=== PATIENT | female | born 1980 | race Caucasian/White ===

== ENCOUNTER 2023-07-18 10:50 | Outpatient (OUT) | payer OTHER, SELFPAY ==
--- NOTE | 2023-07-18 11:41 | XR_ITS ---
The [address] [address] Patient Name: ROMAN TURPIN MRN: [id number] date: 1980 Sex: F Assigned Patient Location: LAB Current Patient Location: LAB Accession/Order Number: [id number] Exam Date: 07/18/2023 11:45 Report Date: 07/18/2023 13:59 At the request of: JUAN DIEGO NASH Procedure: XR chest 2V EXAMINATION: XR chest 2V HISTORY: Cough COMPARISON: XR chest 03/25/2020 FINDINGS: LUNGS: No significant pulmonary parenchymal abnormalities. VASCULATURE: No increased pulmonary vasculature. PLEURA: No pneumothorax, effusion, or pleural thickening. CARDIAC: No cardiomegaly or cardiac silhouette abnormality. MEDIASTINUM: No visible mass or adenopathy. BONES: No fracture or visible bone lesion. OTHER: Negative. XR/XR chest 2V IMPRESSION: 1. No acute cardiopulmonary process. Electronically authenticated by: EJ TRAORE Date: 07/18/2023 13:59
[2023-07-18 12:16] LABS: Percent Iron Saturation 6.8 %
[2023-07-18 12:18] LABS: Estimated Average Glucose 111 mg/dL; Glycohemoglobin A1C 5.5 % (4.5-6.2)
[2023-07-18 12:51] LABS: Chol HDL Ratio 3.2; Cholesterol 224 mg/dL (<=200); HDL Cholesterol 70 mg/dL (40-60); Triglycerides 62 mg/dL (<=150); VLDL CHOLESTEROL 12.4 mg/dL
== END 2023-07-18 10:51 | disposition home or self-care (01) ==
PROVIDERS: PCP Family Medicine Adult Medicine; Visit Provider Family Medicine Adult Medicine
DX: D64.9 Anemia, unspecified (principal); Z13.1 Encounter for screening for diabetes mellitus; Z13.220 Encounter for screening for lipoid disorders; R53.83 Other fatigue; R05.9 Cough, unspecified
CPT/HCPCS: 36415; 71046; 80061; 82607; 82746; 83036; 83540; 83550; 84443

== ENCOUNTER 2023-08-16 13:45 | Emergency (ER) | payer OTHER, SELFPAY ==
[2023-08-16 13:48] VITALS: BP 140/94; PULSE 74; TEMP 36.4; O2SAT 97; BMI 31.6
--- OUTSIDE RECORDS SUMMARY | 2023-08-16 13:49 | XMS_ITS | CCD ---
[facility] Organization [facility] Providers Care Grinder Set Up Operator Surface Name Role Phone [facility] Unavailable Tony Mahan Primary Care Physician Unavail able Tony Mahan Attending Unavailable Tony Mahan Attending Unavailable Karina Beavers Attending Unavailable Tony Mahan Referring Unavailable Tony Mahan Admitting Unavailable Tony Mahan Attending Unavailable Allergies Allergy Classification Reported Allergen(s) Allergy Type Date of Onset Reaction(s) Facility (8 sources) Codeine; Translations: [codeine] Drug Allergy Anaphylaxis (disorder) [facility] Medicine [place] Medications Current Medications Medication Drug Class(es) Dates Sig (Normalized) Sig (Original) [id number] 200 actuat albuterol 0.09 mg/actuat metered dose inhaler (10 sources) beta2-Adrenergic Agonist Start: 11-15-2019 take 1 puff(s) by inhalation every four hours as needed Ventolin HFA 108 (90 Base) MCG/ACT 1 puff as needed Inhalation every 4 hrs Oct, Active Start: 11-15-2019 take 1 puff(s) by in halation every four hours as needed Albuterol Sulfate HFA 108 (90 Base) MCG/ACT 1 puff as needed Inhalation every 4 hrs Active Albuterol (Eqv-ProAir HFA) 90 mcg/inh inhalation aerosol (2 sources) Start: 07-18-2023 take 2 puff(s) by inhalation every six hours Albuterol (Eqv-ProAir HFA) 90 mcg/inh inhalation aerosol 2 puff(s), Inhalation, q6hr, 8.5 gm, Refill(s) 1, [facility], 167, cm, 07/18/23 9:13:00 EDT, Height/Length Dosing, 99.1, kg, 07/18/23 9:13:00 EDT, Weight Dosing Start Date: 07/18/23 Status: Ordered azithromycin 250 mg oral tablet (11 sources) Macrolide Antimicrobial Start: 10-12-2021 Zithromax Z-Jorden 250 MG as directed Orally Sep, Active Start: 11-15-2019 Azithromycin 2 50 MG 2 tablet on the first day, then 1 tablet daily for 4 days Orally as directed for 5 day(s) Dec, Active Start: 11-15-2019 120 actuat budesonide 0.16 mg/actuat / formoterol fumarate 0.0045 mg/actuat metered dose inhaler (5 sources) Corticosteroid, beta2-Adrenergic Agonist Start: 05-03-2019 take 2 puff(s) by inhalation twice daily Symbicort 160-4.5 MCG/ACT 2 puffs Inhalation Twice a day Apr, Active Start: 05-03-2019 Budesonide 90 MCG/ACT (3 sources) Start: 01-04-2021 take 1 puff(s) by inhalation once daily Budesonide 90 MCG/ACT 1 puff Inhalation Once a day Dec, Active Start: 01-04-2021 dexamethasone 2 mg oral tablet (3 sources) Corticosteroid Start: 01-04-2021 Dexamethasone 2 MG 1 tablet Orally TID x's 3 days, then BID x's 3 days, then daily x's 3 days Dec, Active escitalopram 10 mg oral tablet (5 sources) Serotonin Reuptake Inhibitor Start: 04-16-2019 take 1 tablet by mouth every twenty-four hours Escitalopram Oxalate 10 MG 1 tablet Orally Once a day for 30 day(s) Mar, Active guanFACINE 1 mg oral tablet (2 sources) Central alpha-2 Adrenergic Agonist Start: 07-18-2023 take 1 tablet by mouth once daily at bedtime guanFACINE 1 mg Tab 1 mg = 1 tab(s), Oral, Once a day (at bedtime), # 30 tab(s), Refills(s) 5, Pharmacy: [facility], 167, cm, 07/18/23 9:13:00 EDT, Height/Length Dosing, 99.1, kg, 07/18/23 9:13:00 EDT, Weight Dosing Start Date: 07/18/23 Status: Ordered montelukast 10 mg oral tablet (2 sources) Leukotriene Receptor Antagonist Start: 07-18-2023 take 1 tablet by mouth once daily in the evening Singulair 10 mg Tab 10 mg = 1 tab(s), Oral, qPM, # 30 tab(s), Refills(s) 5, Pharmacy: [facility], 167, cm, 07/18/23 9:13:00 EDT, Height/Length Dosing, 99.1, kg, 07/18/23 9:13:00 EDT, Weight Dosing Start Date: 07/18/23 Status: Ordered ondansetron 4 mg oral tablet (5 sources) Serotonin-3 Receptor Antagonist Start: 05-03-2019 take 1 tablet by mouth every six hours as needed Zofran 4 MG 1 tablet Orally Q 6 hrs prn for 30 day(s) Apr, Active predniSONE 20 mg oral tablet (4 sources) Start: 07-18-2023 End: 07-23-2023 take 2 tablets by mouth once daily predniSONE 20 mg Tab 40 mg = 2 tab(s), Oral, Daily, X 5 day(s), # 10 tab(s), Refills(s) 0, Pharmacy: [facility], 167, cm, 07/18/23 9:13:00 EDT, Height/Length Dosing, 99.1, kg, 07/18/23 9:13:00 EDT, Weight Dosing Start Date: 07/18/23 Stop Date: 07/23/23 Status: Ordered Start: 10-12-2021 predniSONE 20 MG 1 tablet TID for 3 days and then 1 tablet BID for 3 day and then 1 tablet daily for 3 days and then stop Orally as directed for 9 days Sep, Active Start: 02-14-2021 predniSONE 20 MG 1 tablet Orally BID for 5 days, QD for 5 days Jan, Active Completed/Discontinued Medications Medication Drug Class(es) Dates Sig (Normalized) Sig (Original) Ketorolac (1 source) Nonsteroidal Anti-inflammatory Drug, Cyclooxygenase Inhibitor Start: 07-18-2015 Toradol per 15 mg June, 2 mg Triamcinolone (1 source) Corticosteroid Start: 11-03-2015 KENALOG - 10 mg Oct, 80 mg Problems Active Problems Problem Classification Problem Date Documented Date Episodic/Chronic Administrative/social admission (1 source) Patient encounter status; Translations: [Persons encountering health services in other specified circumstances] Onset: 07-17-2023 Episodic Anxiety disorders (1 source) Anxiety disorder; Translations: [Anxiety disorder, unspecified] Onset: 07-18-2023 Chronic Asthma (8 sources) Asthma; Translations: [Unspecified asthma, uncomplicated] Onset: 07-18-2023 Chronic Attention-deficit, conduct, and disruptive behavior disorders (3 sources) Attention deficit hyperactivity disorder; Translations: [Attention-deficit hyperactivity disorder, unspecified type] Onset: 07-18-2023 Chronic Deficiency and other anemia (3 sources) Anemia; Translations: [Anemia, unspecified] Onset: 07-18-2023 Episodic Disorders of lipid metabolism (5 sources) Hyperlipidemia; Translations: [Hyperlipidemia, unspecified] Chronic Malaise and fatigue (3 sources) Fatigue; Translations: [Other fatigue] Onset: 07-18-2023 Episodic Mood disorders (9 sources) Depressive disorder; Translations: [Major depressive disorder, single episode, unspecified] Onset: 07-18-2023 Chronic Nausea and vomiting (5 sources) Diarrhea and vomiting; Translations: [Vomiting, unspecified] Episodic Nutritional deficiencies (5 sources) Vitamin D deficiency; Translations: [Vitamin D deficiency, unspecified] Chronic Other lower respiratory disease (3 sources) Cough; Translations: [Cough, unspecified] Onset: 07-18-2023 Episodic Other nervous system disorders (5 sources) Skin sensation disturbance; Translations: [Anesthesia of skin] Episodic Other nutritional; endocrine; and metabolic disorders (5 sources) Body mass index 40+ - severely obese; Translations: [Body mass index (BMI) 40.0-44.9, adult] Chronic Other nutritional; endocrine; and metabolic disorders (1 source) Obese class II; Translations: [Body mass index (BMI) 35.0-35.9, adult] Onset: 07-18-2023 Chronic Other nutritional; endocrine; and metabolic disorders (1 source) Abnormal weight loss; Translations: [Abnormal weight loss] Onset: 07-18-2023 Episodic Other nutritional; endocrine; and metabolic disorders (2 sources) Weight loss 07-18-2023 Episodic Other screening for suspected conditions (not mental disorders or infectious disease) (2 sources) Imaging result abnormal; Translations: [Abnormal findings on diagnostic imaging of other specified body structures] Onset: 07-30-2023 Chronic Other screening for suspected conditions (not mental disorders or infectious disease) (4 sources) Procedure carried out on subject; Translations: [Encounter for screening for lipoid disorders] Onset: 07-18-2023 Episodic Residual codes; unclassified (5 sources) Tobacco user; Translations: [Tobacco use] Episodic Residual codes; unclassified (3 sources) Insomnia; Translations: [Insomnia, unspecified] Onset: 07-18-2023 Episodic Unclassified (10 sources) Patient encounter status 07-17-2023 Past or Other Problems Problem Classification Problem Date Documented Da te Episodic/Chronic Other upper respiratory disease (1 source) Nasal congestion Onset: 02-14-2021 Resolved: 02-14-2021 Episodic Unclassified (1 source) Exposure to COVID-19 virus Z20.822; Translations: [Exposure to COVID-19 virus Z20.822] Onset: 12-18-2020 Resolved: 12-18-2020 Unclassified (1 source) Cough R05.9 Onset: 02-14-2021 Resolved: 02-14-2021 Results Test Name Value Interpretation Reference Range Facility Pulmonary Function Studieson 08-07-2023 Pulmonary Function Studies PULMONARY FUNCTION TEST: 07/30/2023 REFERRING PHYSICIAN: Tony Mahan D.O. REASON FOR TESTING: This is a 43-year-old female former smoker one pack a day for 22 years and work exposure to mold. Pulmonary function test is performed to evaluate for asthma. Spirometry shows reduced FEV1 at 58% predicted. Forced vital capacity is reduced at 75% predicted. FEV1/forced vital capacity ratio is reduced at 63%. After administration of bronchodilator there is significant improvement in FEV1 by 40% and forced vital capacity by 24%. Lung volume testing shows normal total lung capacity at 105% predicted. Residual volume is increased at 195% predicted. RV/total lung capacity ratio is increased at 59%. The lung diffusion capacity is normal at 93% predicted. IMPRESSION: There is moderate to severe obstructive lung disease. There is significant improvement post bronchodilator therapy with normalization suggestive of asthma. The lung volume testing shows air trapping. The lung diffusion capacity is normal. READ BY: Linnea Carolina M.D. ca Dictated: 08/04/2023 [id number] Transcribed: 08/04/2023 cc:Tony Mahan D.O. [facility] Comment on above: Result Comment: Elec tronically Signed By: Ge SMITH, iLnnea X\.br\Date and Time Signed: 08/07/23 13:23 EDT Consent for Treatmenton Consent for Treatment [id number] .00TIFF Normal [facility] Pulmonary Function Testson 0 07-30-2023 Pulmonary Function Tests [id number] #1.00TIFF Normal [facility] XR Chest 2 Viewson XR Chest 2 Views Exam Date/Time: 07/30/2023 10:33 EDT Reason for Exam: R05.9;Cough Report IMPRESSION: SMALL FOCAL DENSITY VISUALIZED ANTERIORLY ON ONLY THE LATERAL VIEW. FOLLOW-UP PA AND LATERAL CHEST EXAM IS A SUGGESTION, AND IF THIS IS PERSISTENT, THEN CT CHEST COULD BE CONSIDERED FOR FURTHER EVALUATION. CLINICAL HISTORY: Cough, R05.9. COMMENT: The heart is normal in size. The mediastinum is unremarkable. On the lateral view, there is a small density projecting posterior to the sternum, but without corresponding finding evident on the PA image, suggesting that this is medial in location. The etiology and significance of this is unclear. Perhaps this is due to atelectasis or small area of confluent infiltration. The lungs are otherwise unremarkable. No pleural effusion is evident. Of incidental note, there is mild thoracic dextroscoliosis. Ordering Provider: Tony Mahan FINAL REPORT Dictated: 07/30/2023 11:12 am Khari Cristina M.D. Signed (Electronic Signature): 07/30/2023 11:12 am Signed by: Khari Cristina M.D. Transcribed by: GUIDO Technologist: DPR Technical Comments Radiation Dose: Ka,r in mGy = na DAP = na Normal [facility] Physician Referralon 024 Physician Referral [id number]# 1.00TIFF Normal [facility] Ambulatory Visit Summaryon 0 07-18-2023 Ambulatory Visit Summary YOLANDA NO :1980 Visit Date:07/18/2023 Ambulatory Visit Instructions Your Diagnosis Establishing care with new doctor, encounter for ADHD Pap smear for cervical cancer screening Weight loss Fatigue Screening mammogram for breast cancer Anemia Recurrent mild major depressive disorder with anxiety Screening for hyperlipidemia Screening for diabetes mellitus Insomnia Asthma Cough Adult BMI 35.0-35.9 kg/sq m Anxiety disorder, unspecified Bipolar disorder Your Care Team Attending Physician - Tony Mhaan DO Primary Care Physician - BETTIE GORDON MD This Is Your Medications List guanfacine (guanFACINE 1 mg Tab) montelukast (Singulair 10 mg Tab) Discharge Vitals Heart Rate (Peripheral) 81 Blood Pressure 128/100 Height 167 cm Height 66 in Weight 99.1 kg Weight 218.02 lb BMI 35.53 What to do next You Need to Schedule the Following Appointments Follow Up with Tony Mahan DO, JUN, PED When: Within 3 months Comments: 20 min slot To go instructions: Get your labs drawn today - we will call with the results Go to the [facility] by Faraz Ojeda for a chest xray Schedule a pulmonary function test to evaluate for Asthma If that's negative, I will order a methacholine challenge Schedule appt with Dr. Garduno for pap smear Read Driven to Distraction by Arnaldo Ayala to learn more about ADHD [email or web address] When you see providers outside of [facility], please request that they send office visit notes every time you're seen there - this helps us take better care of you I want you to see Karina Beavers for counseling Begin guanfacine 1mg at bedtime Remember what we talked about today for sleep: Your bed is for two things; being intimate and sleeping Remind yourself that when in bed, sleep is your priority Avoid thinking about today, tomorrow, what you need to do etc... if you have these thoughts, write them down and return to bed If you spend more than 15 minutes awake in bed, I recommend that you get out of bed and go do something like read a book etc and then return when you're ready to attempt sleep again If you struggle with over-thinking while in bed, research has shown some people need to actively visualize things that help support sleep I visualize sitting on a beach and looking at the horizon. If thoughts creep into my head about what I need to do tomorrow, I push those thoughts out and re-focus on the beach and horizon This is a practice that you'll have to work at, but in days or weeks, with effort, you'll get better with it F/u 3 months Where: [address] [facility] [address] [place] [address] [id number] You Need to Complete the Following CBC w/ Auto Diff, Blood, Routine collect, 07/18/23, Order for future visit, Lab Collect, Anemia, Print Label By Order Location Comprehensive Metabolic Panel, Blood, Routine collect, 07/18/23, Order for future visit, Lab Collect, Fatigue, Print Label By Order Location Ferritin, Blood, Routine collect, 07/18/23, Order for future visit, Lab Collect, Anemia, Print Label By Order Location Folate Level, Blood, Routine collect, 07/18/23, Order for future visit, Lab Collect, Anemia, Print Label By Order Location HgbA1c, Blood, Routine collect, 07/18/23, Order for future visit, Lab Collect, Screening for diabetes mellitus, Print Label By Order Location Iron Level, Blood, Routine collect, 07/18/23, Order for future visit, Lab Collect, Anemia, Print Label By Order Location Iron Percent Saturation, Blood, Routine collect, 07/18/23, Order for future visit, Lab Collect, Anemia, Print Label By Order Location Lipid Panel, Blood, Routine collect, 07/18/23, Order for future visit, Lab Collect, Screening for hyperlipidemia, Print Label By Order Location TSH With T4fr Reflex, Blood, Routine collect, 07/18/23, Order for future visit, Lab Collect, Fatigue, Print Label By Order Location Vitamin B12 Level, Blood, Routine collect, 07/18/23, Order for future visit, Lab Collect, Anemia, Print Label By Order Location XR Chest 2 Views, 07/18/23, Routine, Order for future visit, Transport Mode: Ambulatory, Reason: Cough, No, Cough, [facility] Someone Will Contact You Regarding These Appointments [facility] External Ambulatory Referral, [employer] [employer] [facility], Dr Garduno, 07/18/23 9:35:00 EDT, Pap smear for cervical cancer screening Medications What How Much When Instructions New guanfacine (guanFACINE 1 mg Tab) 1 Tablets By Mouth Once a day (at bedtime) Refills: 5 Pickup at [facility] New montelukast (Singulair 10 mg Tab) 1 Tablets By Mouth Once a day (in the evening) Refills: 5 Pickup at [facility] Pharmacy Information [facility]: [address] [place], [place] [id number] [phone] Allergies codeine (Anaphylactic reaction) Problems Ongoing - Any problem that you (more content not included)... Normal [facility] Family Medicine Office/Clini c Noteon 07-18-2023 Family Medicine Office/Clinic Note Chief Complaint EST CARE HPI Staff Establish Care: History: Last provider: Dr Fields Any recent labs:DUE Health Maintenance UTD: Colonoscopy:N/A PSA:N/A Mammogram:N/A Pelvic/Pap:N/A Acute: Current issues/complaints: History of Present Illness 43 Years old Female here for ESTABLISH CARE This patient is NEW TO ME Previous PCP was Dr. Fields following with that office for years until she was let go from the practice Last appt with previous PCP was 3 years ago Social: The patient is in a long-term relationship with Jamil; who is also a patient here The patient is currently working; [employer] The patient has 5 child(manohar) - two still at home Screening: Colon Cancer screening: no prior colonoscopy; this patient does have family history of colon cancer - maternal grandfather Breast cancer screening: NO MAMMOGRAM YET; this patient does NOT have a family history of breast cancer Pap smear: over three years ago DEXA: age Labs: due Hep C screen since age 20: _ Diabetes/ prediabetes: no fam hx of diabetes Smokers/ former smokers: Low dose lung CT: _ List of Providers: none HPI staff / Chief Complaint confirmed with the patient Interval history: parents are both still alive dad has had hip replacements dad has CAD, heart surgery mom had a valve replaced and hx of CVA no cancer neck fusion here to establish care reports appetite is low feeling tired and run down this is the lowest weight she's ever been since high school weighed 298 when she graduated high school highest was 328 not currently trying to lose weight is 218 today reports a hx of bulimia in her teens the patient has been checking her weight reports a retained tampon that came out approx 8 months ago I only go to the doctor if I definitely need to go Dr Fields had prescribed meds for bipolar and they weren't working so I stopped them was previously treated for ADHD no treatment in twenty years I've really been short with my family lately I'm also feeling really tired I'm not sure if it's depression or what... LABS Cr/eGFR: No qualifying data available. Physical Exam Vitals & Measurements HR: 81(Peripheral) BP: 128/100 SpO2: 95% HT: 66 in HT: 167 cm WT: 99.1 kg WT: 218.02 lb BMI: 35.53 PHYSICAL EXAM Constitutional: Vital signs reviewed; YOLANDA NO is well nourished, no acute distress - obese Head: Atraumatic, normocephalic Eye: EOMI, normal conjunctiva ENT: Moist oral mucosa, external inspection of ears and nose is unremarkable Neck: Trachea is midline, no tenderness Lungs: Clear to auscultation, non-labored respiration - expansion is symmetric Heart: Normal rate and rhythm, normal peripheral perfusion Lymph: Deferred Abd: Deferred : Deferred MSK: Normal gait and station Skin: Warm, dry Neurologic: Awake, alert and oriented, voice is a little hoarse (At baseline) Psychiatric: Cooperative, pleasant - anxious, depressed Assessment/Plan 1. Establishing care with new doctor, encounter for (Z76.89: Persons encountering health services in other specified circumstances) noted as it relates to significantly more time spent with reviewing the patient's records and chart preparation today 2. ADHD (F90.9: Attention-deficit hyperactivity disorder, unspecified type) Chronic Sub-optimal control Room for improvement See instructions below for more specifics for today's plan between today and the patient's next appt: Ordered: [facility] Internal Ambulatory Referral 3. Pap smear for cervical cancer screening (Z12.4: Encounter for screening for malignant neoplasm of cervix) referral placed Ordered: [facility] External Ambulatory Referral 4. Weight loss (R63.4: Abnormal weight loss) has stablized and in fact, is up twenty pounds i wonder if this is more related to uncontrolled MDD vs stress more than anything f/u 1 month 5. Fatigue (R53.83: Other fatigue) Acute on chronic Discussed how her poor sleep chronically likely plays a role here But fatigue is a common issue for a large number of patients and the etiology is often unclear Discussed lab assessment Patient could benefit from weight loss Patient could benefit from healthier food choices Discussed coping skills Encouraged a daily exercise routine Encouraged good sleep hygiene f/u 1 month Ordered: Comprehensive Metabolic Panel TSH With T4fr Reflex 6. Screening mammogram for breast cancer (Z12.31: Encounter for screening mammogram for malignant neoplasm of breast) order placed 7. Anemia (D64.9: Anemia, unspecified) New to me Unclear etiology Will re-check CBC Also, check iron, ferritin, B12 and folate F/u 1 month Ordered: CBC w/ Auto Diff Ferritin Folate Level Iron Level Iron Percent Saturation Vitamin B12 Level 8. Recurrent mild major depressive disorder with anxiety (F33.0: Major depressive disorder, recurrent, mild) Chronic Stable Ro (more content not included)... Normal [facility] Comment on above: Result Comment: Elec tronically Signed By: Tony Mahan DO\.william\Date and Time Signed: 07/18/23 16:07 EDT Patient Educationon 07-18-19 [facility] Attention Deficit Hyperactivity Disorder, Adult Attention deficit hyperactivity disorder (ADHD) is a mental health disorder that starts during childhood. For many people with ADHD, the disorder continues into the adult years. Treatment can help you manage your symptoms. There are three main types of ADHD: ? Inattentive. With this type, adults have difficulty paying attention. This may affect cognitive abilities. ? Hyperactive-impulsive . With this type, adults have a lot of energy and have difficulty controlling their behavior. ? Combination type. Some people may have symptoms of both types. What are the causes? The exact cause of ADHD is not known. Most experts believe a person's genes and environment possibly contribute to ADHD. What increases the risk? The following factors may make you more likely to develop this condition: ? Having a first-degree relative such as a parent, brother, or sister, with the condition. ? Being born before 37 weeks of (prematurely) or at a low weight. ? Being born to a mother who smoked tobacco or drank alcohol during . ? Having experienced a brain injury. ? Being exposed to lead or other toxins in the womb or early in life. What are the signs or symptoms? Symptoms of this condition depend on the type of ADHD. Symptoms of the inattentive type include: ? Difficulty paying attention or following instructions. ? Often making simple mistakes. ? Being disorganized. ? Avoiding tasks that require time and attention. ? Losing and forgetting things. Symptoms of the hyperactive-impulsive type include: ? Restlessness. ? Talking out of turn, interrupting others, or talking too much. ? Difficulty with: ? Sitting still. ? Feeling motivated. ? Relaxing. ? Waiting in line or waiting for a turn. People with the combination type have symptoms of both of the other types. In adults, this condition may lead to certain problems, such as: ? Keeping jobs. ? Performing tasks at work. ? Having stable relationships. ? Being on time or keeping to a schedule. How is this diagnosed? This condition is diagnosed based on your current symptoms and your history of symptoms. The diagnosis can be made by a health care provider such as a primary care provider or a mental health laboratory animal care veterinarian. Your health care provider may use a symptom checklist or a behavior rating scale to evaluate your symptoms. Your health care provider may also want to talk with people who have observed your behaviors throughout your life. How is this treated? This condition can be treated with medicines and behavior therapy. Medicines may be the best option to reduce impulsive behaviors and improve attention. Your health care provider may recommend: ? Stimulant medicines. These are the most common medicines used for adult ADHD. They affect certain chemicals in the brain (neurotransmitters) and improve your ability to control your symptoms. ? A non-stimulant medicine. These medicines can also improve focus, attention, and impulsive behavior. It may take weeks to months to see the effects of this medicine. Counseling and behavioral management are also important for treating ADHD. Counseling is often used along with medicine. Your health care provider may suggest: ? Cognitive behavioral therapy (CBT). This type of therapy teaches you to replace negative thoughts and actions with positive thoughts and actions. When used as part of ADHD treatment, this therapy may also include: ? Coping strategies for organization, time management, impulse control, and stress reduction. ? Mindfulness and meditation training. ? Behavioral management. You may work with a riding coach who is specially trained to help people with ADHD manage and organize activities and function more effectively. Follow these instructions at home: Medicines ? Take wark-scz-glpfsoc and prescription medicines only as told by your health care provider. ? Talk with your health care provider about the possible side effects of your medicines and how to manage them. Alcohol use ? Do not drink alcohol if: ? Your health care provider tells you not to drink. ? You are , may be , or are planning to become . ? If you drink alcohol: ? Limit how much you use to: ? 0?1 drink a day for women. ? 0?2 drinks a day for men. ? Know how much alcohol is in your drink. In the [place] one drink equals one 12 oz bottle of beer (355 mL), one 5 oz glass of wine (148 mL), or one 1? oz glass of hard liquor (44 mL). Lifestyle ? Do not use illegal drugs. ? Get enough sleep. ? Eat a healthy diet. ? Exercise regularly. Exercise can help to reduce stress and anxiety. General instructions ? Learn as much as you can about adult ADHD, and work closely with your health care providers to find the treatments that work best for you. ? Follow th (more content not included)... Normal [facility] COVID + FLU Quick Testingon 02-14-2021 SARS-CoV-2 (COVID-19) RNA ANDREW+probe Ql (Unsp spec) Negative [employer] Other COVID + FLU Quick Testing Negative [employer] Other ECG 12 lead ECGon 12-29-2020 ECG 12 lead ECG [facility] [place] [address] [place] [address] Electrocardiograph Report Signed Patient: Yolanda Woo MR#: [id number] 46 : 1980 Acct:[id number] Age/Sex: 40 / F ADM Date: 12/29/20 Loc: ER Room: Type: [facility] ER Attending Dr: Ordering Provider: Bret Burton DO Date of Service: 12/29/2007/15/1311 ECG/ECG 12 lead ECG: Shortness of Breath/Dyspnea Copies to: Test Reason : Blood Pressure : / mmHG Vent. Rate : 111 BPM Atrial Rate : 111 BPM P-R Int : 132 ms QRS Dur : 084 ms QT Int : 342 ms P-R-T Axes : 069 057 046 degrees QTc Int : 465 ms Sinus tachycardia Nonspecific ST abnormality Confirmed by Bret Burton DO ([id number]) on 12/29/2020 8:03:31 PM Referred By: Electronically Signed By:Bret Burton DO Transcribed By: MUS Signed By Bret Burton DO 2002 [facility] COVID Quick Testingon 2020 Result Negative [employer] Other Coding Summaryon 03-28-2020 Coding Summary CODING DATE: 03/28/2020 [facility] STATUS: Home PAYOR: Medicaid HMO ADMIT DX: REASON FOR VISIT DX: R06.2 Wheezing R51.9 Headache, unspecified R05 Cough FINAL DX: PRINCIPAL: J20.9 Acute bronchitis, unspecified SECONDARY: J45.909 Unspecified asthma, uncomplicated R11.10 Vomiting, unspecified PYMT PROC APC STAT DESCRIPTION DOCTOR NAME DATE NOTE: The code number assigned matches the documented diagnosis and / or procedure in the patient's chart. However, the narrative phrase printed from the coding software may appear abbreviated, or result in slightly different terminology. Coded By: Daniel Doe Date Saved: 03/28/2020 05:36 pm [facility] Coding Summary CODING DATE: 03/28/2020 [facility] STATUS: Home PAYOR: Medicaid HMO ADMIT DX: REASON FOR VISIT DX: R06.2 Wheezing R51.9 Headache, unspecified R05 Cough FINAL DX: PRINCIPAL: J20.9 Acute bronchitis, unspecified SECONDARY: J45.909 Unspecified asthma, uncomplicated R11.10 Vomiting, unspecified PYMT PROC APC STAT DESCRIPTION DOCTOR NAME DATE NOTE: The code number assigned matches the documented diagnosis and / or procedure in the patient's chart. However, the narrative phrase printed from the coding software may appear abbreviated, or result in slightly different terminology. Coded By: Daniel Doe Date Saved: 03/28/2020 05:36 pm [facility] Coding Summary CODING DATE: 03/28/2020 [facility] STATUS: Home PAYOR: Medicaid HMO ADMIT DX: REASON FOR VISIT DX: R06.2 Wheezing R51.9 Headache, unspecified R05 Cough FINAL DX: PRINCIPAL: J20.9 Acute bronchitis, unspecified SECONDARY: J45.909 Unspecified asthma, uncomplicated R11.10 Vomiting, unspecified PYMT PROC APC STAT DESCRIPTION DOCTOR NAME DATE NOTE: The code number assigned matches the documented diagnosis and / or procedure in the patient's chart. However, the narrative phrase printed from the coding software may appear abbreviated, or result in slightly different terminology. Coded By: Dainel Doe Date Saved: 03/28/2020 05:34 pm [facility] .QC Respiratory Panel 2.1 (B ioFire)on 03-25-2020 Internal Control-Resp Panel 2.1(BioFire) Pass [facility] Comment on above: Order Comment: Order ed by [employer]. [[email or web address]] Performed By: #### [id number] #### [facility] (DEFAULT) [address] [place] [address] ED Clinical Summaryon 2020 ED Clinical Summary [facility] - Emergency Department [address] [place], [place] [id number] ED Clinical Summary PERSON INFORMATION Name: YOLANDA WOO Age: 40 Years Sex: FEMALE : 1980 MRN: Acct#: Visit Reason: Body aches; Shortness of breath; Headache; HEADACHE, SOB Arrival: 03/25/2020 09:53:06 Discharge: 03/25/2020 12:58:00 LOS: 000 03:05 Check In: 03/25/2020 09:53:06 Checkout:03/25/2020 12:58:00 Address: [facility] [address] PCP: [facility] PROVIDER INFORMATION Provider Role Assigned Unassigned Harpreet Lance MD ED Provider 03/25/2020 10:02:43 Shane RN, Brunilda Vladez ED Nurse 03/25/2020 10:04:40 VITALS INFORMATION Vital Sign Triage Latest Temperature Tympanic Temperature Temporal Artery Pulse Rate 85 bpm 63 bpm O2 Sat 93 % 100 % Respiratory Rate 12 br/min 18 br/min Blood Pressure /103 mmHg /103 mmHg MEDICAL INFORMATION Medications Given: Medication Dose Route albuterol 180 mcg INH methylPREDNISolone 125 mg IV azithromycin 500 mg PO ondansetron 4 mg IV Push acetaminophen 1000 mg PO sodium chloride 10 mL IV Push levalbuterol 1.25 mg NEB Allergy Information: codeine PHYSICIAN DOCUMENTATION Patient: YOLANDA WOO Age: 40 years Sex: FEMALE : 1980 Associated Diagnoses: Acute bronchitis Author: Harpreet Lance MD Basic Information Time seen: Date & time 03/25/2020 10:29:00. History source: Patient. Arrival mode: Private vehicle. History limitation: None. Additional information: Chief Complaint from Nursing Triage Note : Chief Complaint 03/25/2020 9:55 EST Chief Complaint Body aches, headache, cough and SOB. . History of Present Illness This 40-year-old woman who is asthmatic is out of her inhaler solution for her nebulizer. She has been wheezing for 24 hours but also has a headache, vomited once and has a little bit of a cough. Fever was 100. She is not diabetic and does not smoke. She states there has been some exposure to Covid. Loss of taste sensation and smell is not present. There is no rash. There is no swelling of the legs. There is no chest pain. She is moderately to mildly short of breath Review of Systems Constitutional symptoms: no Fatigue, no fever, no chills. Skin symptoms: Negative except as documented in HPI. ENMT symptoms: Negative except as documented in HPI. Respiratory symptoms: Negative except as documented in HPI. Wheezing as above Cardiovascular symptoms: Negative except as documented in HPI. Gastrointestinal symptoms: Negative except for documented as above in the HPI Genitourinary symptoms: Negative except as documented in HPI. Musculoskeletal symptoms: Negative except as documented in HPI. Neurologic symptoms: Negative except as documented in HPI. Remainder of 10 systems, all negative except for mentioned above Health Status Allergies: Allergic Reactions (Selected) No Known Medication Allergies. Medications: (Selected) Inpatient Medications Ordered SOLU-Medrol: 125 mg = 2 mL, IV, Once Tylenol: 1,000 mg = 2 tab(s), PO, Once Zithromax: 500 mg = 2 tab(s), PO, Once Zofran: 4 mg = 2 mL, IV Push, Once albuterol 90 mcg/inh aerosol: 180 mcg = 2 puff(s), INH, Once. Physical Examination CONST: -Well-developed well-nourished ; -In no acute distress. -Vitals reviewed. EYES: -EOM intact, WALDO: -Sclera normal and conjunctiva: clear bilaterally. ENT: - Normal pharynx pink and moist. NECK: -Supple ([id number]-[id number]). CARD: -Rate and rhythm: Regular -Murmurs: No RESP: -Respiratory effort and chest excursion with respirations: Normal -Breath sounds equal bilaterally: Bilateral wheezing -Wheezes: Positive -Rales: No BACK: -Flank pain: No -Pain on palpation: No ABD: -Distended: No -Bruits: No -Bowel sounds: Normal. -Deep palpation: Non-tender -Organomegaly palpable: No -Abnormal masses: No EXT: Gross appearance and use of all four extremities: Normal SKIN: -Good turgor warm and dry. -Apparent lesions or rashes: No NEURO: -Patient: alert -Oriented to: person, place and time. -Appearance and judgment: appropriate. -Cranial Nerves: Normal. -Speech: Normal Medical Decision Making Covid negative, chest x-ray negative and patient will get her inhaler and nebulizing treatments here. She feelings better already. 2 days off work returning for worsening weakening especially associated with fever Impression and Plan Diagnosis Acute bronchitis (ELK16-AR J20, Discharge, Medical) Plan Condition: Improved. Disposition: Discharged: Time 03/25/2020 12:47:00, to home. Prescriptions: [facility] prescriptions Pharmacy: albuterol 2.5 mg/3 mL (0.083%) inhalation solution (Prescribe): 2.5 mg = 3 mL, INH, q6hr, PRN: for wheezing, 25 EA, 0 Refill(s) Zithromax Z-Jorden 250 mg oral tablet (Prescribe): 1 packet(s), PO, Once, as directed on package labeling, 6 tab(s), 0 Refill(s) Medrol Dosepak 4 mg oral tablet (Prescribe): 1 packet(s), PO, Once, as directed on package labeling, 21 tab(s), 0 Refill(s). Patient was given the following educational materials: Asthma, Adult. Follow up with: [facility] Within 2 to 4 days. Counseled: Patient, Regarding diagnosis, Regarding diagnostic results, Regarding treatment plan, Regarding prescription, Patient indicated understanding of instructions. DISCHARGE INFORMATION: Discharge Disposition: Home Discharge Location: Home PATIENT EDUCATION INFORMATION Instructions: Asthma, Adult Follow-Up: With: Address: When: [facility] [address] [place] [id number] [facility] (1) Within 2 to 4 days DIAGNOSIS: Acute bronchitis Patient Understands: Yes - Patient/family/caregi zia verbalizes understanding of instructions given Comment: [facility] ED Note - Physicianon 2020 ED Note - Physician Patient: YOLANDA WOO Age: 40 years Sex: FEMALE : 1980 Associated Diagnoses: Acute bronchitis Author: Harpreet Lance MD Basic Information Time seen: Date & time 03/25/2020 10:29:00. History source: Patient. Arrival mode: Private vehicle. History limitation: None. Additional information: Chief Complaint from Nursing Triage Note : Chief Complaint 03/25/2020 9:55 EST Chief Complaint Body aches, headache, cough and SOB. . History of Present Illness This 40-year-old woman who is asthmatic is out of her inhaler solution for her nebulizer. She has been wheezing for 24 hours but also has a headache, vomited once and has a little bit of a cough. Fever was 100. She is not diabetic and does not smoke. She states there has been some exposure to Covid. Loss of taste sensation and smell is not present. There is no rash. There is no swelling of the legs. There is no chest pain. She is moderately to mildly short of breath Review of Systems Constitutional symptoms: no Fatigue, no fever, no chills. Skin symptoms: Negative except as documented in HPI. ENMT symptoms: Negative except as documented in HPI. Respiratory symptoms: Negative except as documented in HPI. Wheezing as above Cardiovascular symptoms: Negative except as documented in HPI. Gastrointestinal symptoms: Negative except for documented as above in the HPI Genitourinary symptoms: Negative except as documented in HPI. Musculoskeletal symptoms: Negative except as documented in HPI. Neurologic symptoms: Negative except as documented in HPI. Remainder of 10 systems, all negative except for mentioned above Health Status Allergies: Allergic Reactions (Selected) No Known Medication Allergies. Medications: (Selected) Inpatient Medications Ordered SOLU-Medrol: 125 mg = 2 mL, IV, Once Tylenol: 1,000 mg = 2 tab(s), PO, Once Zithromax: 500 mg = 2 tab(s), PO, Once Zofran: 4 mg = 2 mL, IV Push, Once albuterol 90 mcg/inh aerosol: 180 mcg = 2 puff(s), INH, Once. Physical Examination CONST: -Well-developed well-nourished ; -In no acute distress. -Vitals reviewed. EYES: -EOM intact, WALDO: -Sclera normal and conjunctiva: clear bilaterally. ENT: - Normal pharynx pink and moist. NECK: -Supple ([id number]). CARD: -Rate and rhythm: Regular -Murmurs: No RESP: -Respiratory effort and chest excursion with respirations: Normal -Breath sounds equal bilaterally: Bilateral wheezing -Wheezes: Positive -Rales: No BACK: -Flank pain: No -Pain on palpation: No ABD: -Distended: No -Bruits: No -Bowel sounds: Normal. -Deep palpation: Non-tender -Organomegaly palpable: No -Abnormal masses: No EXT: Gross appearance and use of all four extremities: Normal SKIN: -Good turgor warm and dry. -Apparent lesions or rashes: No NEURO: -Patient: alert -Oriented to: person, place and time. -Appearance and judgment: appropriate. -Cranial Nerves: Normal. -Speech: Normal Medical Decision Making Covid negative, chest x-ray negative and patient will get her inhaler and nebulizing treatments here. She feelings better already. 2 days off work returning for worsening weakening especially associated with fever Impression and Plan Diagnosis Acute bronchitis (ZNE39-KT J20, Discharge, Medical) Plan Condition: Improved. Disposition: Discharged: Time 03/25/2020 12:47:00, to home. Prescriptions: [facility] prescriptions Pharmacy: albuterol 2.5 mg/3 mL (0.083%) inhalation solution (Prescribe): 2.5 mg = 3 mL, INH, q6hr, PRN: for wheezing, 25 EA, 0 Refill(s) Zithromax Z-Jorden 250 mg oral tablet (Prescribe): 1 packet(s), PO, Once, as directed on package labeling, 6 tab(s), 0 Refill(s) Medrol Dosepak 4 mg oral tablet (Prescribe): 1 packet(s), PO, Once, as directed on package labeling, 21 tab(s), 0 Refill(s). Patient was given the following educational materials: Asthma, Adult. Follow up with: [facility] Within 2 to 4 days. Counseled: Patient, Regarding diagnosis, Regarding diagnostic results, Regarding treatment plan, Regarding prescription, Patient indicated understanding of instructions. [Electronically Signed on: 03/25/2020 12:49 EST] Harpreet Lance MD [Verified on: 03/25/2020 12:49 EST] Harpreet Lance MD [facility] ED Note-Nursingon 03-25-2020 ED Note-Nursing [id number]. [id number] [facility] ED Note-Nursing Patient seen in ED room 3, resting quietly on the cart, A & O x 4, appears to be in no acute distress. Pt c/o shortness of breath, headache, fatigue, and mild nausea, states that symptoms started last night. Pt able to speak in complete sentences, currently 96% on room air. Pt afebrile, but c/o feeling that her face and head is hot, cheeks appear flushed, states that she feels chilled. Pt reports that she has asthma, has run out of albuterol for her nebulizer, has been using just her albuterol rescue inhaler. 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 Denies any other known possible covid contacts. States that she has been tested for covid several times, and that all have been negative. Denies sore throat, loss of taste/smell, nasal congestion. Pt admits to smoking, states that she used to smoke 1.5 pk/day, is now down to 8-10 cigarettes per day, states she has only smoked about 2 cigarettes per day in the last 2 days. Pt has audible wheezes on auscultation, all norris, mainly expiratory. Side rails up x 2, call pitts in reach; EKG completed, Dr. Lance entering room. Normal [facility] ED Patient Education Noteon 03-25-2020 ED Patient Education Note Education Materials Pulmonary Medicine Asthma, Adult Asthma is a long-term (chronic) condition that causes recurrent episodes in which the airways become tight and narrow. The airways are the passages that lead from the nose and mouth down into the lungs. Asthma episodes, also called asthma attacks, can cause coughing, wheezing, shortness of breath, and chest pain. The airways can also fill with mucus. During an attack, it can be difficult to breathe. Asthma attacks can range from minor to life threatening. Asthma cannot be cured, but medicines and lifestyle changes can help control it and treat acute attacks. What are the causes? This condition is believed to be caused by inherited (genetic) and environmental factors, but its exact cause is not known. There are many things that can bring on an asthma attack or make asthma symptoms worse (triggers). Asthma triggers are different for each person. Common triggers include: ? Mold. ? Dust. ? Cigarette smoke. ? Cockroaches. ? Things that can cause allergy symptoms (allergens), such as animal dander or pollen from trees or grass. ? Air pollutants such as household gang pusher, wood smoke, smog, or chemical odors. ? Cold air, weather changes, and winds (which increase molds and pollen in the air). ? Strong emotional expressions such as crying or laughing hard. ? Stress. ? Certain medicines (such as aspirin) or types of medicines (such as beta-blockers). ? Sulfites in foods and drinks. Foods and drinks that may contain sulfites include dried fruit, potato chips, and sparkling grape juice. ? Infections or inflammatory conditions such as the flu, a cold, or inflammation of the nasal membranes (rhinitis). ? Gastroesophageal reflux disease (GERD). ? Exercise or strenuous activity. What are the signs or symptoms? Symptoms of this condition may occur right after asthma is triggered or many hours later. Symptoms include: ? Wheezing. This can sound like whistling when you breathe. ? Excessive nighttime or early childhood lead teacher coughing. ? Frequent or severe coughing with a common cold. ? Chest tightness. ? Shortness of breath. ? Tiredness (fatigue) with minimal activity. How is this diagnosed? This condition is diagnosed based on: ? Your medical history. ? A physical exam. ? Tests, which may include: ? Lung function studies and pulmonary studies (spirometry). These tests can evaluate the flow of air in your lungs. ? Allergy tests. ? Imaging tests, such as X-rays. How is this treated? There is no cure for this condition, but treatment can help control your symptoms. Treatment for asthma usually involves: ? Identifying and avoiding your asthma triggers. ? Using medicines to control your symptoms. Generally, two types of medicines are used to treat asthma: ? Controller medicines. These help prevent asthma symptoms from occurring. They are usually taken every day. ? Fast-acting reliever or rescue medicines. These quickly relieve asthma symptoms by widening the narrow and tight airways. They are used as needed and provide short-term relief. ? Using supplemental oxygen. This may be needed during a severe episode. ? Using other medicines, such as: ? Allergy medicines, such as antihistamines, if your asthma attacks are triggered by allergens. ? Immune medicines (immunomodulators). These are medicines that help control the immune system. ? Creating an asthma action plan. An asthma action plan is a written plan for managing and treating your asthma attacks. This plan includes: ? A list of your asthma triggers and how to avoid them. ? Information about when medicines should be taken and when their dosage should be changed. ? Instructions about using a device called a peak flow meter. A peak flow meter measures how well the lungs are working and the severity of your asthma. It helps you monitor your condition. Follow these instructions at home: Controlling your home environment Control your home environment in the following ways to help avoid triggers and prevent asthma attacks: ? Change your heating and air conditioning filter regularly. ? Limit your use of fireplaces and wood stoves. ? Get rid of pests (such as roaches and mice) and their droppings. ? Throw away plants if you see mold on them. ? Clean floors and dust surfaces regularly. Use unscented cleaning products. ? Try to have someone else vacuum for you regularly. Stay out of rooms while they are being vacuumed and for a short while afterward. If you vacuum, use a dust mask from a hardware store, a double-layered or microfilter vacuum grain cleaner bag, or a vacuum grain cleaner with a HEPA filter. ? Replace carpet with wood, tile, or vinyl seth. Carpet can trap dander and dust. ? Use allergy-proof pillows, mattress covers, and box spring covers. ? Keep your bedroom a trigger-free room. ? Avoid pets and keep windows closed when allergens are in the air. ? Wash beddings every week in hot water and dry them in a dryer. ? Use blankets that are made of polyester or cotton. ? Clean bathrooms and phylicia with bleach. If possible, have someone repaint the pat in these rooms with mold-resistant paint. Stay out of the rooms that are being cleaned and painted. ? Wash your hands often with soap and water. If soap and water are not available, use hand service center technician. ? Do not allow anyone to smoke in your home. General instructions ? Take qtda-oiy-pqgphqs and prescription medicines only as told by your health care provider. ? Speak with your health care provider if you have questions about how or when to take the medicines. ? Make note if you are requiring more frequent dosages. ? Do not use any products that contain nicotine or tobacco, such as cigarettes and e-cigarettes. If you need help quitting, ask your health care provider. Also, avoid being exposed to secondhand smoke. ? Use a peak flow meter as told by your health care provider. Record and keep track of the readings. ? Understand and use the asthma action plan to help minimize, or stop an asthma attack, without needing to seek medical care. ? Make sure you stay up to date on your yearly vaccinations as told by your health care provider. This may include vaccines for the flu and pneumonia. ? Avoid outdoor activities when allergen counts are high and when air quality is low. ? Wear a ski mask that covers your nose and mouth during outdoor winter activities. Exercise indoors on cold days if you can. ? Warm up before exercising, and take time for a cool-down period after exercise. ? Keep all follow-up visits as told by your health care provider. This is important. Where to find more information ? For information about asthma, turn to the Centers for Disease Control and Prevention at www.cdc.gov/asthma/fa qs.htm ? For air quality information, turn to [employer] at https://airnow.gov/ Contact a health care provider if: ? You have wheezing, shortness of breath, or a cough even while you are taking medicine to prevent attacks. ? The mucus you cough up (sputum) is thicker than usual. ? Your sputum changes from clear or white to yellow, green, wang, or bloody. ? Your medicines are causing side effects, such as a rash, itching, swelling, or trouble breathing. ? You need to use a reliever medicine more than 2?3 times a week. ? Your peak flow reading is still at 50?79% of your personal best after following your action plan for 1 hour. ? You have a fever. Get help right away if: ? You are getting worse and do not respond to treatment during an asthma attack. ? You are short of breath when at rest or when doing very little physical activity. ? You have difficulty eating, drinking, or talking. ? You have chest pain or tightness. ? You develop a fast heartbeat or palpitations. ? You have a bluish color to your lips or fingernails. ? You are light-headed or dizzy, or you faint. ? Your peak flow reading is less than 50% of your personal best. ? You feel too tired to breathe normally. Summary ? Asthma is a long-term (chronic) condition that causes recurrent episodes in which the airways become tight and narrow. These episodes can cause coughing, wheezing, shortness of breath, and chest pain. ? Asthma cannot be cured, but medicines and lifestyle changes can help control it and treat acute attacks. ? Make sure you understand how to avoid triggers and how and when to use your medicines. ? Asthma attacks can range from minor to life threatening. Get help right away if you have an asthma attack and do not respond to treatment with your usual rescue medicines. This information is not intended to replace advice given to you by your health care provider. Make sure you discuss any questions you have with your health care provider. Document Released: 02/10/2006 Document Revised: 04/15/2019 Document Reviewed: 03/17/2017 Elsevier Patient Education ? 2019 [place]. Normal [facility] ED Patient Summaryon 021 ED Patient Summary [facility] - Emergency Department [address] [place], [place] [id number] PATIENT DISCHARGE INSTRUCTIONS Patient Information Name: YOLANDA WOO Age: 40 Years Date of : 1980 Reason For Visit: Body aches; Shortness of breath; Headache; HEADACHE, SOB Arrival Time: 03/25/2020 09:53:06 Primary Care Physician: [facility] Attending Physician: Harpreet Lance MD Comment: Visit Diagnosis: Diagnoses This Visit Acute bronchitis (J20) Body aches ([id number]) Headache ([id number]) Shortness of breath ([id number]) Prescription Information: If you have been given a prescription for narcotics, seek immediate medical attention if you have any difficulty breathing or any sudden status changes such as confusion and sleepiness. If you or anyone you know is experiencing suicidal thoughts, mental health, alcohol and/or drug addiction problems; contact the Mental Health [facility] Recovery [facility] 16/09 Crisis Hotline -Text 4HKMJ ys 588011. If you received any narcotics, sedation, or any other medication that causes drowsiness for the next 24 hours, unless otherwise directed: ? Do not drive a car. ? Do not operate machinery such as power tools, lawn mowers, drills, sewing machines, or stoves ? Avoid alcoholic beverages and drugs for allergies, nerves, or sleep ? Do not make important personal or business decisions or sign any legal documents With: Address: When: [facility] [address] [place] [address] Business (1) Within 2 to 4 days Medication Information: The exam and treatment you received today in the [facility] Emergency Department were for an urgent problem and are not intended as complete care. It is important for you to follow up with a doctor, nurse practitioner, or physician?s web marketing assistant for ongoing care. If your symptoms become worse or you do not improve as expected and you are unable to reach your usual health care provider, you should return to the Emergency Department, we are available 24 hours a day. For those patients who have received Radiology results, the interpretation of your X-ray as given to you by our Emergency Department physician is only a preliminary report. The Radiologist will review your films and if there is a change in the diagnosis you will be notified by phone. Please make sure you have provided a working phone number so we can reach you if necessary. In the event that you had a lab culture while you were a patient in the Emergency Department, you will be notified by phone if there is a need to change your antibiotic. Please make sure you have provided a working phone number so we can reach you if necessary. [facility] Emergency Department has provided you with a complete list of medications post discharge. Please inform your assistant general manager/provider of your visit and for further instruction on these medications. Any specific questions regarding your chronic medications and dosages should be discussed with your primary care physician(s) and/or pharmacist. New Medications Printed Prescriptions albuterol (albuterol 2.5 mg/3 mL (0.083%) inhalation solution) 3 Milliliter Inhalation Every 6 hours as needed for wheezing. Refills: 0. azithromycin (Zithromax Z-Jorden 250 mg oral tablet) 1 packet(s) Oral once. as directed on package labeling. Refills: 0. methylPREDNISolone (Medrol Dosepak 4 mg oral tablet) 1 packet(s) Oral once. as directed on package labeling. Refills: 0. Visit Information Allergies: Substance Reaction Symptoms Type Comments codeine Swelling Drug Vital Signs: Vitals and Measurements this Visit (last charted value for your 03/25/2020 visit) Vital Signs This Visit Temperature Oral: 36.8 DegC Peripheral Pulse Rate: 63 bpm Respiratory Rate: 18 br/min Systolic Blood Pressure: 134 mmHg Diastolic Blood Pressure: 88 mmHg SpO2: 100 % Oxygen Therapy: Room air Measurements This Visit Height/Length Dosin.000 cm Height/Length Estimated: 178.000 cm Weight Dosin.330 kg Weight Estimated: 104.330 kg Problems List: Problem Onset Comments Asthma Depression Smoker Added secondary to documentation in Social History. Patient Education Asthma, Adult Asthma is a long-term (chronic) condition that causes recurrent episodes in which the airways become tight and narrow. The airways are the passages that lead from the nose and mouth down into the lungs. Asthma episodes, also called asthma attacks, can cause coughing, wheezing, shortness of breath, and chest pain. The airways can also fill with mucus. During an attack, it can be difficult to breathe. Asthma attacks can range from minor to life threatening. Asthma cannot be cured, but medicines and lifestyle changes can help control it and treat acute attacks. What are the causes? This condition is believed to be caused by inherited (genetic) and environmental factors, but its exact cause is not known. There are many things that can bring on an asthma attack or make asthma symptoms worse (triggers). Asthma triggers are different for each person. Common triggers include: ? Mold. ? Dust. ? Cigarette smoke. ? Cockroaches. ? Things that can cause allergy symptoms (allergens), such as animal dander or pollen from trees or grass. ? Air pollutants such as household gang pusher, wood smoke, smog, or chemical odors. ? Cold air, weather changes, and winds (which increase molds and pollen in the air). ? Strong emotional expressions such as crying or laughing hard. ? Stress. ? Certain medicines (such as aspirin) or types of medicines (such as beta-blockers). ? Sulfites in foods and drinks. Foods and drinks that may contain sulfites include dried fruit, potato chips, and sparkling grape juice. ? Infections or inflammatory conditions such as the flu, a cold, or inflammation of the nasal membranes (rhinitis). ? Gastroesophageal reflux disease (GERD). ? Exercise or strenuous activity. What are the signs or symptoms? Symptoms of this condition may occur right after asthma is triggered or many hours later. Symptoms include: ? Wheezing. This can sound like whistling when you breathe. ? Excessive nighttime or early childhood lead teacher coughing. ? Frequent or severe coughing with a common cold. ? Chest tightness. ? Shortness of breath. ? Tiredness (fatigue) with minimal activity. How is this diagnosed? This condition is diagnosed based on: ? Your medical history. ? A physical exam. ? Tests, which may include: ? Lung function studies and pulmonary studies (spirometry). These tests can evaluate the flow of air in your lungs. ? Allergy tests. ? Imaging tests, such as X-rays. How is this treated? There is no cure for this condition, but treatment can help control your symptoms. Treatment for asthma usually involves: ? Identifying and avoiding your asthma triggers. ? Using medicines to control your symptoms. Generally, two types of medicines are used to treat asthma: ? Controller medicines. These help prevent asthma symptoms from occurring. They are usually taken every day. ? Fast-acting reliever or rescue medicines. These quickly relieve asthma symptoms by widening the narrow and tight airways. They are used as needed and provide short-term relief. ? Using supplemental oxygen. This may be needed during a severe episode. ? Using other medicines, such as: ? Allergy medicines, such as antihistamines, if your asthma attacks are triggered by allergens. ? Immune medicines (immunomodulators). These are medicines that help control the immune system. ? Creating an asthma action plan. An asthma action plan is a written plan for managing and treating your asthma attacks. This plan includes: ? A list of your asthma triggers and how to avoid them. ? Information about when medicines should be taken and when their dosage should be changed. ? Instructions about using a device called a peak flow meter. A peak flow meter measures how well the lungs are working and the severity of your asthma. It helps you monitor your condition. Follow these instructions at home: Controlling your home environment Control your home environment in the following ways to help avoid triggers and prevent asthma attacks: ? Change your heating and air conditioning filter regularly. ? Limit your use of fireplaces and wood stoves. ? Get rid of pests (such as roaches and mice) and their droppings. ? Throw away plants if you see mold on them. ? Clean floors and dust surfaces regularly. Use unscented cleaning products. ? Try to have someone else vacuum for you regularly. Stay out of rooms while they are being vacuumed and for a short while afterward. If you vacuum, use a dust mask from a hardware store, a double-layered or microfilter vacuum grain cleaner bag, or a vacuum grain cleaner with a HEPA filter. ? Replace carpet with wood, tile, or vinyl seth. Carpet can trap dander and dust. ? Use allergy-proof pillows, mattress covers, and box spring covers. ? Keep your bedroom a trigger-free room. ? Avoid pets and keep windows closed when allergens are in the air. ? Wash beddings every week in hot water and dry them in a dryer. ? Use blankets that are made of polyester or cotton. ? Clean bathrooms and phylicia with bleach. If possible, have someone repaint the pat in these rooms with mold-resistant paint. Stay out of the rooms that are being cleaned and painted. ? Wash your hands often with soap and water. If soap and water are not available, use hand service center technician. ? Do not allow anyone to smoke in your home. General instructions ? Take zdnp-qrs-fqeiulp and prescription medicines only as told by your health care provider. ? Speak with your health care provider if you have questions about how or when to take the medicines. ? Make note if you are requiring more frequent dosages. ? Do not use any products that contain nicotine or tobacco, such as cigarettes and e-cigarettes. If you need help quitting, ask your health care provider. Also, avoid being exposed to secondhand smoke. ? Use a peak flow meter as told by your health care provider. Record and keep track of the readings. ? Understand and use the asthma action plan to help minimize, or stop an asthma attack, without needing to seek medical care. ? Make sure you stay up to date on your yearly vaccinations as told by your health care provider. This may include vaccines for the flu and pneumonia. ? Avoid outdoor activities when allergen counts are high and when air quality is low. ? Wear a ski mask that covers your nose and mouth during outdoor winter activities. Exercise indoors on cold days if you can. ? Warm up before exercising, and take time for a cool-down period after exercise. ? Keep all follow-up visits as told by your health care provider. This is important. Where to find more information ? For information about asthma, turn to the Centers for Disease Control and Prevention at www.cdc.gov/asthma/fa qs.htm ? For air quality information, turn to AirNow at https://airnow.gov/ Contact a health care provider if: ? You have wheezing, shortness of breath, or a cough even while you are taking medicine to prevent attacks. ? The mucus you cough up (sputum) is thicker than usual. ? Your sputum changes from clear or white to yellow, green, wang, or bloody. ? Your medicines are causing side effects, such as a rash, itching, swelling, or trouble breathing. ? You need to use a reliever medicine more than 2?3 times a week. ? Your peak flow reading is still at 50?79% of your personal best after following your action plan for 1 hour. ? You have a fever. Get help right away if: ? You are getting worse and do not respond to treatment during an asthma attack. ? You are short of breath when at rest or when doing very little physical activity. ? You have difficulty eating, drinking, or talking. ? You have chest pain or tightness. ? You develop a fast heartbeat or palpitations. ? You have a bluish color to your lips or fingernails. ? You are light-headed or dizzy, or you faint. ? Your peak flow reading is less than 50% of your personal best. ? You feel too tired to breathe normally. Summary ? Asthma is a long-term (chronic) condition that causes recurrent episodes in which the airways become tight and narrow. These episodes can cause coughing, wheezing, shortness of breath, and chest pain. ? Asthma cannot be cured, but medicines and lifestyle changes can help control it and treat acute attacks. ? Make sure you understand how to avoid triggers and how and when to use your medicines. ? Asthma attacks can range from minor to life threatening. Get help right away if you have an asthma attack and do not respond to treatment with your usual rescue medicines. This information is not intended to replace advice given to you by your health care provider. Make sure you discuss any questions you have with your health care provider. Document Released: 02/10/2006 Document Revised: 04/15/2019 Document Reviewed: 03/17/2017 [employer] Patient Education ? 2019 [place]. Viruses or Bacteria What?s got you sick? Antibiotics only treat bacterial infections. Viral illnesses cannot be treated with antibiotics. When an antibiotic is not prescribed, ask your healthcare professional for tips on how to relieve symptoms and feel better. Usual Cause Illness Viruses Bacteria Antibiotic Needed Cold/Runny Nose NO Bronchitis/Chest Cold (in otherwise healthy children and adults) NO Whooping Cough Yes Flu NO Strep Throat Yes Sore Throat (except strep) NO Fluid in the middle ear (otitis media with effusion) NO Urinary Tract Infection Yes Antibiotics Aren?t Always the Answer www.cdc.gov/getsmart GET SMART Know When Antibiotics Work [place].S. Department of Health and Human Services Centers for Disease Control and Prevention October 2013 Normal [facility] Respiratory Panel 2.1 (BioFi re)on 03-25-2020 Adenovirus -BioFire Not Detected Normal Not Detected [facility] Comment on above: Performed By: #### 6 [id number], [id number] #### [facility] (DEFAULT) [address] [place] [address]678 Bordetella parapertussis -BioFire Not Detected Normal Not Detected [facility] Comment on above: Performed By: #### 6 [id number], [id number] #### [facility] (DEFAULT) [address] [place] [address] 21031 Bordetella pertussis -BioFire Not Detected Normal Not Detected [facility] Comment on above: Performed By: #### 6 [id number], [id number] #### [facility] (DEFAULT) [address] [place] [address] 02072 Chlamydia pneumoniae -BioFire Not Detected Normal Not Detected [facility] Comment on above: Performed By: #### 6 [id number], [id number] #### [facility] (DEFAULT) [address] [place] [address] 25244 Coronavirus 229E (Not COVID-19) -BioFire Not Detected Normal Not Detected [facility] Comment on above: Performed By: #### 6 [id number], [id number] #### [facility] (DEFAULT) [address] [place] [address] 79487 Coronavirus HKU1 (Not COVID-19) -BioFire Not Detected Normal Not Detected [facility] Comment on above: Performed By: #### 6 [id number], [id number] #### [facility] (DEFAULT) [address] [place] [address] 11793 Coronavirus NL63 (Not COVID-19) -BioFire Not Detected Normal Not Detected [facility] Comment on above: Performed By: #### 6 [id number], [id number] #### [facility] (DEFAULT) [address] [place] [address] 31272 Coronavirus OC43 (Not COVID-19) -BioFire Not Detected Normal Not Detected [facility] Comment on above: Performed By: #### 6 [id number], [id number] #### [facility] (DEFAULT) [address] [place] [address] Employed in healthcare? No [facility] Comment on above: Performed By: #### 6 [id number], [id number] #### [facility] (DEFAULT) [address] [place] [address] Group care resident? No [facility] Comment on above: Performed By: #### 6 [id number], [id number] #### [facility] (DEFAULT) [address] [place] [address] Hospitalized due to COVID-19? No [facility] Comment on above: Performed By: #### 6 [id number], [id number] #### [facility] (DEFAULT) [address] [place] [address] Human Metapneumovirus -BioFire Not Detected Normal Not Detected [facility] Comment on above: Performed By: #### 6 [id number], [id number] #### [facility] (DEFAULT) [address] [place] [address] 99570 Human Rhinovirus/Enterovir us -BioFire Not Detected Normal Not Detected [facility] Comment on above: Performed By: #### 6 [id number], [id number] #### [facility] (DEFAULT) [address] [place] [address] 22960 In ICU? No [facility] Comment on above: Performed By: #### 6 [id number], [id number] #### [facility] (DEFAULT) [address] [place] [address] 40412 Influenza A -BioFire Not Detected Normal Not Detected [facility] Comment on above: Performed By: #### 6 [id number], [id number] #### [facility] (DEFAULT) [address] [place] [address] 82019 Influenza B -BioFire Not Detected Normal Not Detected [facility] Comment on above: Performed By: #### 6 [id number], [id number] #### [facility] (DEFAULT) [address] [place] [address] 71225 Mycoplasma pneumoniae -BioFire Not Detected Normal Not Detected [facility] Comment on above: Performed By: #### 6 [id number], [id number] #### [facility] (DEFAULT) [address] [place] [address] 91927 Parainfluenza Virus 1 -BioFire Not Detected Normal Not Detected [facility] Comment on above: Performed By: #### 6 [id number], [id number] #### [facility] (DEFAULT) [address] [place] [address] 58141 Parainfluenza Virus 2 -BioFire Not Detected Normal Not Detected [facility] Comment on above: Performed By: #### 6 [id number], [id number] #### [facility] (DEFAULT) [address] [place] [address] 12709 Parainfluenza Virus 3 -BioFire Not Detected Normal Not Detected [facility] Comment on above: Performed By: #### 6 [id number], [id number] #### [facility] (DEFAULT) [address] [place] [address] 64933 Parainfluenza Virus 4 -BioFire Not Detected Normal Not Detected [facility] Comment on above: Performed By: #### 6 [id number], [id number] #### [facility] (DEFAULT) [address] [place] [address] 32012 status? Not [facility] Comment on above: Performed By: #### 6 [id number], [id number] #### [facility] (DEFAULT) [address] [place] [address] 18112 Respiratory Syncytial Virus -BioFire Not Detected Normal Not Detected [facility] Comment on above: Performed By: #### 6 [id number], [id number] #### [facility] (DEFAULT) [address] [place] [address] 91355 SARS-CoV-2 (COVID-19) -BioFire Not Detected Normal Not Detected [facility] Comment on above: Result Comment: Perf ormed by PCR methodology. Performed By: #### 6 [id number], [id number] #### [facility] (DEFAULT) [address] [place] [address] Symptomatic as defined by [facility] [place] No [facility] Comment on above: Performed By: #### 6 [id number], [id number] #### [facility] (DEFAULT) [address] [place] [address] 38482 XR Chest 1 View Frontalon XR Chest 1 View Frontal EXAM: XR CHEST 1 VIEW FRONTAL HISTORY: chest pain COMPARISON: None. TECHNIQUE: Portable chest done at 11:59 AM. FINDINGS: The lungs are clear and well aerated. Trachea, mediastinum, heart size, diaphragm and bony elements are intact. IMPRESSION: Nonacute portable chest. Final Dictated by: Javier Maldonado Dictated DT/TM: 03/25/20 12:41 Signed (Electronic Signature): Javier Maldonado 03/25/20 12:42 p Technologist: Tiburcio MOISE [facility] Vital Signs Date Time Vital Sign Value Performing Clinician [place] jones 07-18-2023 09:09-0400 Blood Pressure Location [facility] 07-18-2023 09:09-0400 Diastolic blood pressure 100 mm[Hg] [facility] 07-18-2023 09:09-0400 [facility] 81 [facility] 07-18-2023 09:09-0400 SaO2% (BldA) [Mass fraction] 95 % [facility] 07-18-2023 09:09-0400 Systolic blood pressure 128 mm[Hg] [facility] 12-18-2020 14:30-0400 Body height 172.72 cm [facility] Other [employer] Other Encounters Encounter Date Encounter Type Care Provider Facility Start: 07-30-2023 End: 07-30-2023 ambulatory Tony Mahan Facility:[facility] Start: 07-30-2023 End: 07-30-2023 Patient encounter procedure Tony Mahan [facility] Start: 07-18-2023 ambulatory Tony Mahan Facility [facility] Start: 07-18-2023 End: 07-18-2023 ambulatory Tony Mahan Facility:[facility] Start: 07-18-2023 End: 07-18-2023 Patient encounter procedure Tony Mahan [facility] Start: 10-12-2021 End: 10-12-2021 ambulatory [facility] Other [employer] Other Start: 10-12-2021 Telephone encounter [facility] Start: 02-14-2021 End: 02-14-2021 ambulatory [facility] Other [employer] Other Start: 02-14-2021 Nursing evaluation o f patient and report [facility] [place] Start: 01-04-2021 End: 01-04-2021 ambulatory [facility] Other [employer] Other Start: 01-04-2021 Telephone encounter [facility] Start: 12-26-2020 End: 12-26-2020 ambulatory [facility] Other [employer] Other Start: 12-26-2020 Telephone encounter [facility] Start: 12-18-2020 Nursing evaluation o f patient and report [facility] Procedures Date Procedure Procedure Detail Performing Clinician Counseling [facility] Other Plan of Treatment Date Care Activity Detail Author Start: 10-22-2023 ambulatory Ambulatory Facility:[facility] Immunizations Immunization Date Immunization Notes Care Provider Fa dora 11-03-2015 KENALOG - 10 mg [facility] Other [employer] Other 07-18-2015 Toradol per 15 mg [facility] Other [employer] Other Payers Date Payer Category Payer Unknown [id number] 1980 Unknown [id number] 1980 Unknown [id number] [id number] 1980 Unknown [id number] 2.16.8 [id number] 1980 Unknown [id number] 2.16.8 [id number] Unknown [id number] 2.1 [id number] Social History Date Type Detail Facility Unknown if ever smoked [employer] Other Sex Assigned At [facility] Start: 07-18-2023 Tobacco smoking status Ex-smoker (fi nding) [facility] Functional Status Date Assessment Result Facility 07-18-2023 Functional Status N/A [facility] Clinical Notes 04-16-2019 to 07-18-2023 Note Date & Type Note Facility 07-18-2023 Hospital Discharge instructions Patient Education 07/18/2023 09:30:22 Attention Deficit Hyperactivity Disorder, Adult Attention Deficit Hyperactivity Disorder, Adult Attention deficit hyperactivity disorder (ADHD) is a mental health disorder that starts during childhood. For many people with ADHD, the disorder continues into the adult years. Treatment can help you manage your symptoms. There are three main types of ADHD: Inattentive. With this type, adults have difficulty paying attention. This may affect cognitive abilities. Hyperactive-impulsive. With this type, adults have a lot of energy and have difficulty controlling their behavior. Combination type. Some people may have symptoms of both types. What are the causes? The exact cause of ADHD is not known. Most experts believe a person's genes and environment possibly contribute to ADHD. What increases the risk? The following factors may make you more likely to develop this condition: Having a first-degree relative such as a parent, brother, or sister, with the condition. Being born before 37 weeks of (prematurely) or at a low weight. Being born to a mother who smoked tobacco or drank alcohol during . Having experienced a brain injury. Being exposed to lead or other toxins in the womb or early in life. What are the signs or symptoms? Symptoms of this condition depend on the type of ADHD. Symptoms of the inattentive type include: Difficulty paying attention or following instructions. Often making simple mistakes. Being disorganized. Avoiding tasks that require time and attention. Losing and forgetting things. Symptoms of the hyperactive-impulsive type include: Restlessness. Talking out of turn, interrupting others, or talking too much. Difficulty with: ?Sitting still. ?Feeling motivated. ?Relaxing. ?Waiting in line or waiting for a turn. People with the combination type have symptoms of both of the other types. In adults, this condition may lead to certain problems, such as: Keeping jobs. Performing tasks at work. Having stable relationships. Being on time or keeping to a schedule. How is this diagnosed? This condition is diagnosed based on your current symptoms and your history of symptoms. The diagnosis can be made by a health care provider such as a primary care provider or a mental health laboratory animal care veterinarian. Your health care provider may use a symptom checklist or a behavior rating scale to evaluate your symptoms. Your health care provider may also want to talk with people who have observed your behaviors throughout your life. How is this treated? This condition can be treated with medicines and behavior therapy. Medicines may be the best option to reduce impulsive behaviors and improve attention. Your health care provider may recommend: Stimulant medicines. These are the most common medicines used for adult ADHD. They affect certain chemicals in the brain (neurotransmitters) and improve your ability to control your symptoms. A non-stimulant medicine. These medicines can also improve focus, attention, and impulsive behavior. It may take weeks to months to see the effects of this medicine. Counseling and behavioral management are also important for treating ADHD. Counseling is often used along with medicine. Your health care provider may suggest: Cognitive behavioral therapy (CBT). This type of therapy teaches you to replace negative thoughts and actions with positive thoughts and actions. When used as part of ADHD treatment, this therapy may also include: ?Coping strategies for organization, time management, impulse control, and stress reduction. ?Mindfulness and meditation training. Behavioral management. You may work with a riding coach who is specially trained to help people with ADHD manage and organize activities and function more effectively. Follow these instructions at home: Medicines Take sewk-mku-fqymtcp and prescription medicines only as told by your health care provider. Talk with your health care provider about the possible side effects of your medicines and how to manage them. Alcohol use Do not drink alcohol if: ?Your health care provider tells you not to drink. ?You are , may be , or are planning to become . If you drink alcohol: ?Limit how much you use to: ?0 1 drink a day for women. ?0 2 drinks a day for men. ?Know how much alcohol is in your drink. In the [place] one drink equals one 12 oz bottle of beer (355 mL), one 5 oz glass of wine (148 mL), or one 1 oz glass of hard liquor (44 mL). Lifestyle Do not use illegal drugs. Get enough sleep. Eat a healthy diet. Exercise regularly. Exercise can help to reduce stress and anxiety. General instructions Learn as much as you can about adult ADHD, and work closely with your health care providers to find the treatments that work best for you. Follow the same schedule each day. Use reminder devices like notes, calendars, and phone apps to stay on time and organized. Keep all follow-up visits. Your health care provider will need to monitor your condition and adjust your treatment over time. Where to find more information A health care provider may be able to recommend resources that are available online or over the phone. You could start with: Attention Deficit Disorder Association (ADDA): add.org National [place] of Mental Health (NIMH): nimh.nih.gov Contact a health care provider if: Your symptoms continue to cause problems. You have side effects from your medicine, such as: ?Repeated muscle twitches, coughing, or speech outbursts. ?Sleep problems. ?Loss of appetite. ?Dizziness. ?Unusually fast heartbeat. ?Stomach pains. ?Headaches. You are struggling with anxiety, depression, or substance abuse. Get help right away if: You have a severe reaction to a medicine. This symptom may be an emergency. Get help right away. Call 911. Do not wait to see if the symptom will go away. Do not drive yourself to the hospital. Take one of these steps if you feel like you may hurt yourself or others, or have thoughts about taking your own life: Go to your nearest emergency room. Call 911. Call the National Suicide Prevention Lifeline at or 966. This is open 24 hours a day Text the Crisis Text Line at 494629. Summary ADHD is a mental health disorder that starts during childhood and often continues into your adult years. The exact cause of ADHD is not known. Most experts believe genetics and environmental factors contribute to ADHD. There is no cure for ADHD, but treatment with medicine, cognitive behavioral therapy, or behavioral management can help you manage your condition. This information is not intended to replace advice given to you by your health care provider. Make sure you discuss any questions you have with your health care provider. Document Revised: 05/31/2022 Document Reviewed: 05/31/2022 [employer] Patient Education 2022 [place]. Follow Up Care 04/04/2023 13:32:06 With:Kalli CEBALLOS, JUN Culp, PED Address: [address] [place] [address] [phone] When:3 months Comments:20 min slotTo go instructions:Get your labs drawn today - we will call with the resultsGo to the [facility] by [facility] for a chest xraySchedule a pulmonary function test to evaluate for AsthmaIf that's negative, I will order a methacholine challengeSchedule appt with Dr. Garduno for pap smearRead Driven to Distraction by Arnaldo Ayala to learn more about ADHD [email or web address]/slide shows/xnjh-[email or web address]-ygjqw-[email or web address]-our -feet/When you see providers outside of [facility], please request that they send office visit notes every time you're seen there - this helps us take better care of youI want you to see Karina Beavers for counselingBegin guanfacine 1mg at bedtimeRemember what we talked about today for sleep:Your bed is for two things; being intimate and sleepingRemind yourself that when in bed, sleep is your priorityAvoid thinking about today, tomorrow, what you need to do etc... if you have these thoughts, write them down and return to bedIf you spend more than 15 minutes awake in bed, I recommend that you get out of bed and go do something like read a book etc and then return when you're ready to attempt sleep againIf you struggle with over-thinking while in bed, research has shown some people need to actively visualize things that help support sleepI visualize sitting on a beach and looking at the horizon. If thoughts creep into my head about what I need to do tomorrow, I push those thoughts out and re-focus on the beach and horizonThis is a practice that you'll have to work at, but in days or weeks, with effort, you'll get better with itF/u 3 months [facility] 02-14-2021 Evaluation note Encounter Date Diagnosis Assessment Notes Jan, Cough (ICD-10 - R05.9) The patient was tested for both covid and flu today via drive up testing with negative results. The above medication was prescribed. She was encouraged to call the office or utilize ER or urgent care for any worsening symptoms. She voiced understanding. Medications e-scribed. Jan, Congestion of nasal sinus (ICD-10 - R09.81) COVID and Flu test obtained via nurse visit with negative results. [employer] Other [id number] Evaluation note* Encounter Date Diagnosis Assessment Notes Treatment Notes Treatment Clinical Notes Nov, Exposure to COVID-19 virus (ICD-10 - Z20.822) In house COVID test performed today due to recent exposure to daughter who tested positive. Patient was advised of negative result. [employer] Other [id number] History general Narrative - Reported* Type Description Date Medical History asthma Medical History 04/16/2019 EKG Medical History Cigarette smoker Surgical History C section Hospitalization History see surgical hx [employer] Other Evaluation + Plan note Future Appointments Appointment Date:10/22/2023 10:20:00 AM Scheduled Provider:Tony Mahan DO Location:[facility] Appointment Type: Open Future Scheduled Tests Laboratory* HgbA1c 07/18/23 * TSH With T4fr Reflex 07/18/23 * CBC w/ Auto Diff 07/18/23 * Comprehensive Metabolic Panel 07/18/23 * Ferritin 07/18/23 * Folate Level 07/18/23 * Iron Level 07/18/23 * Iron Percent Saturation 07/18/23 * Lipid Panel 07/18/23 * Vitamin B12 Level 07/18/23 Radiology* XR Chest 2 Views 07/18/23 [facility] Evaluation + Plan note Future Appointments Appointment Date:10/22/2023 09:00:00 AM Scheduled Provider:Karina France Location:[facility] Appointment Type: Intake Appointment Date:10/22/2023 10:20:00 AM Scheduled Provider:Tony Mahan DO Location:[facility] Appointment Type: Open [facility] Scheduled Tests Laboratory* HgbA1c 07/18/23 * TSH With T4fr Reflex 07/18/23 * CBC w/ Auto Diff 07/18/23 * Comprehensive Metabolic Panel 07/18/23 * Ferritin 07/18/23 * Folate Level 07/18/23 * Iron Level 07/18/23 * Iron Percent Saturation 07/18/23 * Lipid Panel 07/18/23 * Vitamin B12 Level 07/18/23 Radiology* XR Chest 2 Views [facility]13[facility]23 [facility] noteNo InformationNosaint [facility] [employer] Other History general Narrative - [facility]NoJeff[facility] [employer] Other Hospital course Narrative No data available for this section [facility] Hospital Discharge instructions No data available for this section [facility] No data available for this section [facility] Reason for referral (narrative) Referred by: Tony Mahan DO [facility] Summary Purpose Family History No Family History Records FoundNo Family History Records Found No data available for this section No data available for this section No Family History Records Found Advance Directives No Advanced Directives Records FoundNo Advanced Directives Records FoundNo Advanced Directives Records Found Additional Source Comments INFORMATION SOURCE (unrecogn ized section and content) DATE CREATED AUTHOR 03/30/2020 [facility] DATE CREATED AUTHOR AUTHOR'S ORGANIZ ATION 03/18/2021 [facility] DATE CREATED AUTHOR AUTHOR'S ORGANIZ ATION 08/09/2023 [facility] REASON FOR VISIT (unrecogniz ed section and content) covid test-daughter tested p ositiveClinicalcough, congestionclinical Patient Care team informatio n (unrecognized section and content) Personnel Name: Tony Mahan DO Address: Address: [address] [place], [place] [id number] Personnel Name: Tony Mahan DO Address: Address: [address] [place], [place] [id number] FOR RECORDS PERTAINING TO PATIENTS WHO ARE OR HAVE BEEN ENROLLED IN A CHEMICAL DEPENDENCY/SUBSTANCEABUSE PROGRAM, SOME INFORMATION MAY BE OMITTED. This clinical summary was aggregated from multiple sources. Caution should be exercised in using it in the provision of clinical care. This summary normalizes information from multiple sources, and as a consequence, information in this document may materially change the coding, format and clinical context of patient data. In addition, data may be omitted in some cases. CLINICAL DECISIONS SHOULD BE BASED ON THE PRIMARY CLINICAL RECORDS. [employer] [facility]. provides no warranty or guarantee of the accuracy or completeness of information in this document.
--- NOTE | 2023-08-16 13:53 | ED_ITS ---
HPI HPI - Extremity Injury (Upper) General Chief Complaint: Extremity Injury, Upper Stated Complaint: UPPER EXTREMITY INJURY Time Seen by Provider: 08/16/23 13:53 History of Present Illness HPI narrative: This patient is here complaining of pain in her right hand. The event occurred yesterday when she stumbled. When she fell onto the pavement there apparently was a thumbtack on the ground and stuck her in the palmar aspect of her right hand. She pulled the thumbtack out. She said it bled a little bit. Now she has discomfort in the knee proximal aspect of the index finger and third digit of her right hand. She is not sure of her last tetanus shot so we will update that. She does not think she is a diabetic but we will check that as well. There is no proximal lymphangitis or or cellulitis locally there is no drainage or discharge but she has a lot of discomfort when she tries to move her in the some third finger. She is not running a fever. Not taken any leftover antibiotics. Related Data Allergies Allergy/AdvReac Type Severity Reaction Status Date / Time bee venom protein (honey bee) Allergy Severe Anaphylaxis Verified 08/16/23 13:48 codeine Allergy Severe Anaphylaxis Verified 08/16/23 13:48 Opioid HPI Opioid Management Most Recent Pain and Opioid Data: Last Pain Scale 7 08/16/23 13:50 Exam Narrative Exam Narrative: Very pleasant female. Vital signs are stable she is afebrile. Problem focused examination. She does have some restriction of motion with flexion of her index and middle digit. However there is no purulent drainage discharge lymphangitis or evidence of cellulitis. There are 2 tiny puncture wounds. She accounts for 1 with the thumbtack but all the other puncture wound was there she is not sure. The dorsum of the hand is asymptomatic. The forearm and the upper arm are asymptomatic. X-rays will be done. MDM - Extremity Injury (Upper) MDM Narrative Medical decision making narrative: This injury occurred yesterday and x-rays do not show any obvious fracture. She has some discomfort with flexion of the digits so I am empirically going to start her on intravenous antibiotics given there there is no external evidence of infectious process. She will then be placed on oral antibiotics. She will be excused from work and she will have to keep a very close eye on this. Should symptoms worsen she should return. Discharge Plan Discharge Stand Alone Forms: Portal Instructions Chief Complaint: Extremity Injury, Upper Clinical Impression: Puncture wound of hand, right Patient Disposition: Home, Self-Care Time of Disposition Decision: 15:05 Print Language: Arabic Additional Instructions: Keflex 4 times a day/return if no evidence of infection worsens or pain worsens. Follow-up with primary care doctor Referrals: Tony Mahan DO [Primary Care Provider] - 1 week
--- NOTE | 2023-08-16 13:54 | XR_ITS ---
The [address] [address] Patient Name: ROMAN TURPIN MRN: [id number] date: 1980 Sex: F Assigned Patient Location: ER Current Patient Location: ED.MAIN Accession/Order Number: [id number] Exam Date: 08/16/2023 14:15 Report Date: 08/16/2023 15:10 At the request of: BHARTI KEY Procedure: XR hand RT min 3V EXAM: XR hand RT min 3V HISTORY: Trauma, pain near second third digit COMPARISON: None. TECHNIQUE: PA, oblique, lateral x-ray right hand. FINDINGS: Normal mineralization. No fracture or focal bone lesion. Normal joints and soft tissues. Normal-appearing carpal bones, distal radius and ulna at the wrist. XR/XR hand RT min 3V IMPRESSION: Negative for fracture or foreign body. Electronically authenticated by: PARKER PAULINO Date: 08/16/2023 15:10
[2023-08-16] MEDS: ADACEL DIPH,PERTUSS(ACELL),TET VAC/PF 0.5 ML ADULT SYRINGE IM (14:01)
[2023-08-16 14:07] LABS: Glucometer 87 mg/dL (74-106)
[2023-08-16] MEDS: CEFAZOLIN SODIUM/DEXTROSE,ISO 1 GM/50 ML IV.SOLN IV (15:14)
[2023-08-16 15:53] VITALS: BP 140/105; PULSE 67; O2SAT 96
== END 2023-08-16 15:55 | disposition home or self-care (01) ==
PROVIDERS: Emergency Provider Emergency Medicine Emergency Medical Services; PCP Family Medicine Adult Medicine
DX: S61.431A Puncture wound without foreign body of right hand, initial encounter (principal); W22.8XXA Striking against or struck by other objects, initial encounter; Z23 Encounter for immunization
CPT/HCPCS: 36415; 73130; 82948; 90471; 90715; 96365; 99284; J0690